=== PATIENT | female | born 1995 | race Caucasian/White ===

== ENCOUNTER 2019-03-05 23:51 | Emergency (ER) | payer SELFPAY ==
[~2019-03-05] VITALS: Ht 162.6 cm; Wt 54.4 kg
[2019-03-05 23:57] VITALS: Ht 162.6 cm; Wt 54.4 kg
[2019-03-06 02:30] LABS: microscopic required? YES; urine erythrocyte 3+ (NEGATIVE)
[2019-03-06 03:51] VITALS: BP 100/69
== END 2019-03-06 03:51 | disposition home or self-care (01) ==
LOC: ED 23:51
PROVIDERS: Emergency Medicine
DX: B96.89 Other specified bacterial agents as the cause of diseases classified elsewhere (principal); N39.0 Urinary tract infection, site not specified; F17.210 Nicotine dependence, cigarettes, uncomplicated
CPT/HCPCS: 87491; 87591; 99406

== ENCOUNTER 2019-10-09 23:57 | Emergency (ER) | payer OTHER ==
[~2019-10-09] VITALS: Ht 152.4 cm; Wt 58.5 kg
[2019-10-10 00:05] VITALS: Ht 152.4 cm; Wt 58.5 kg
[2019-10-10 00:44] LABS: CALCIUM 9.5 mg/dL (8.5-10.1); CARBON DIOXIDE 30.4 mmol/L (21-32); CHLORIDE SERUM 104 mmol/L (98-107); CREATININE SERUM 0.6 mg/dL (0.6-1.0); GFR1 > 60 mL/min; GLUCOSE SERUM 114 mg/dL (74-106); POTASSIUM SERUM 3.3 mmol/L (3.5-5.1); SODIUM SERUM 141 mmol/L (136-145)
[2019-10-10 00:58] LABS: BASOPHIL % 0.6 % (0-2); PLATELET COUNT 213 x10^3mcL (130-400); RED CELL DISTRIBUTION WIDTH 12.1 % (11.5-14.5)
[2019-10-10 00:59] LABS: FREE T4 1.01 ng/dL (0.76-1.46)
[2019-10-10 01:30] LABS: AMPHETAMINE QUAL UR NONE DETECTED (See below)
[2019-10-10 02:07] VITALS: BP 106/65
== END 2019-10-10 02:07 | disposition home or self-care (01) ==
LOC: ED 23:57
PROVIDERS: Emergency Medicine
DX: R06.00 Dyspnea, unspecified (principal); R06.02 Shortness of breath; R07.89 Other chest pain; R00.2 Palpitations; R53.1 Weakness; Z98.890 Other specified postprocedural states
CPT/HCPCS: 36415; 84439; Q0092; Q0163